=== PATIENT | male | born 1990 | race Caucasian/White ===

== ENCOUNTER 2020-07-20 00:07 | Emergency (ER) | payer OTHER ==
[~2020-07-20] VITALS: Ht 167.6 cm; Wt 65.8 kg
[2020-07-20 00:15] VITALS: BP 112/69
--- NOTE | 2020-07-20 00:31 | NUR ---
AT BEDSIDE FOR EVAL.
== END 2020-07-20 00:41 | disposition home or self-care (01) ==
LOC: ER 00:07
DX: Z02.89 Encounter for other administrative examinations (principal); R42 Dizziness and giddiness; I95.9 Hypotension, unspecified; E86.0 Dehydration; F17.200 Nicotine dependence, unspecified, uncomplicated